=== PATIENT | male | born 1975 | race African-American/Black ===

== ENCOUNTER 2016-07-01 21:39 | Emergency (ER) | payer MEDICAID ==
[~2016-07-01] VITALS: Ht 180.3 cm; Wt 84.8 kg
[~2016-07-01 21:39] MED LIST: ASPI325T4 PO; HYDR-2762 PO
[2016-07-01 21:45] VITALS: BP 142/85
[2016-07-01] MEDS ORDERED: NAPR500T8 PO (22:40)
[2016-07-01] MEDS ORDERED: HYDR-971 PO (22:40)
--- NOTE | 2016-07-01 22:41 | PHYS DOC ---
Past Medical History Past Medical History: No Pertinent History Past Surgical History: No Surgical History Alcohol Use: Occasionally Drug Use: None Adult General Chief Complaint Chief Complaint: UPPER EXTREMITY INJURY HPI HPI Patient is a 41 year old male who presents with mild right forearm pain that began this morning at 4 AM when he was being arrested by police. Review of Systems Review of Systems Constitutional: Denies fever or chills [] Eyes: Denies change in visual acuity, redness, or eye pain [] Musculoskeletal: right forearm pain Integument: Denies rash or skin lesions [] Neurologic: Denies headache, focal weakness or sensory changes [] Endocrine: Denies polyuria or polydipsia [] Allergies Allergies Allergies Coded Allergies Type Severity Reaction Last Updated Verified No Known Drug Allergies 11/27/15 No Physical Exam Physical Exam Constitutional: Well developed, well nourished, no acute distress, non-toxic appearance. [] HENT: Normocephalic, atraumatic, bilateral external ears normal, oropharynx moist, no oral exudates, nose normal. [] Skin: Warm, dry, no erythema, no rash. [] Back: No tenderness, no CVA tenderness. [] Extremities: Right forearm and wrist with no obvious deformity. Mild soft tissue swelling and Bruising noted on the right dorsal wrist. No scaphoid pain or tenderness on the right wrist. Tenderness on palpation of the right dorsal wrist. Limited range of motion to the right wrist especially flexion and extension due to pain. Adequate plantar flexion and doesn't flexion of the right forearm. +2 right radial pulse. Cap refill less than 2 seconds the right upper extremity. Sensation intact to the right upper extremity. Neurologic: Alert and oriented X 3, normal motor function, normal sensory function, no focal deficits noted. [] Psychologic: Affect normal, judgement normal, mood normal. [] Current Patient Data Vital Signs Vital Signs Date Time Temp Pulse Resp B/P Pulse Ox O2 Delivery O2 Flow Rate FiO2 07/01/16 21:45 97.9 99 16 98 Room Air 97.9 EKG EKG [] Radiology/Procedures Radiology/Procedures [] Course & Med Decision Making Course & Med Decision Making Pertinent Labs and Imaging studies reviewed. (See chart for details) Patient is in the ED with right forearm pain that began during police arrest. Right forearm and right wrist x-rays interpreted by Dr. Antonio are noted for fracture of the distal ulna. Patient was placed in a sugar tong splint by the master automotive technician, neurovascular exam done by me is normal, cap refill less than 2 seconds. Ice elevation encouraged. Follow-up with Ortho Sunday. [place] Disclaimer [place] Disclaimer This electronic medical record was generated, in whole or in part, using a voice recognition dictation system. Departure Departure Impression: Primary Impression: Ulnar fracture Disposition: HOME, SELF-CARE Condition: STABLE Referrals: NO PCP (PCP) NUNO MARX MD See him in one week Patient Instructions: Wrist Fracture Additional Instructions: You were seen for wrist fracture. Follow-up with the provided orthopedic doctor by calling his office on Sunday morning. Ice and elevate the extremity. Scripts Hydrocodone/Apap 5-325 ([place] 5-325 Tablet)1 Each Tablet1-2 Tab PO Q4-6HRS #20 TAB Prov:VICENTE LEMON APRN 07/01/16 Naproxen 500 Mg Tablet.dr1 Tab PO BID #60 TAB Ref 1 Prov:VICENTE LEMON APRN 07/01/16 Problem Qualifiers Primary Impression: Ulnar fracture Encounter type: initial encounter Ulna location: proximal ulna Fracture type: closed Fracture morphology: unspecified fracture morphology Laterality : right Qualified Code: S52.001A - Unspecified fracture of upper end of right ulna, initial encounter for closed fracture VICENTE LEMON APRN Jul 01, 2016 22:41
--- NOTE | 2016-07-02 10:04 | RAD ---
EXAM: 1. Right wrist 3 views. 2. Right forearm 3 views. HISTORY: Right forearm and wrist pain after injury. COMPARISON: None. FINDINGS: There is an oblique, nondisplaced fracture of the distal ulnar metaphysis. No radial fracture is seen. The joint spaces and alignment of the wrist and elbow appear maintained. IMPRESSION: 1. Oblique nondisplaced fracture of the distal ulnar metaphysis.
== END 2016-07-01 23:04 | disposition home or self-care (01) ==
LOC: ER 21:39
DX: S52.201A Unspecified fracture of shaft of right ulna, initial encounter for closed fracture (principal); X58.XXXA Exposure to other specified factors, initial encounter; Y93.89 Activity, other specified; Y99.8 Other external cause status; Y92.89 Other specified places as the place of occurrence of the external cause
CPT/HCPCS: 29125; 73090; 73110; 99284-25

== ENCOUNTER 2017-04-27 09:16 | Emergency (ER) | payer SELFPAY, MEDICAID ==
[2017-04-27] MEDS: ACETAMINOPHEN 325 MG TABLET. PO (10:16)
[2017-04-27] MEDS: IBUPROFEN 600 MG TABLET. PO (10:16)
[2017-04-27 10:42] LABS: INFLUENZA A PATIENT POSITIVE (NEGATIVE); INFLUENZA B PATIENT NEGATIVE (NEGATIVE); OBC FLU VALID
[2017-04-27] MEDS: OSELTAMIVIR 75 MG CAPSULE PO (10:53)
[2017-04-27 11:57] LABS: NEGATIVE OBC STREP NEG; POSITIVE OBC STREP POS
== END 2017-04-27 11:25 | disposition home or self-care (01) ==
LOC: ER 09:16
DX: J10.1 Influenza due to other identified influenza virus with other respiratory manifestations (principal)
CPT/HCPCS: 87070; 87804; 87804-59; 87880; 99284